=== PATIENT | male | born 2000 | race Caucasian/White ===

== ENCOUNTER → 2021-01-13 | Outpatient (CLI) | payer OTHER ==
--- NOTE | 2021-01-13 13:07 | Diagnostic Imaging Report ---
INDICATION: Left knee pain. Injury. COMPARISON: None. FINDINGS: 3 views of the left knee joint demonstrate no acute fracture or dislocation. No focal osseous lesions are seen. Small suprapatellar joint effusion is seen. The surrounding soft tissue structures are unremarkable. There are no radiopaque foreign bodies. IMPRESSION: 1. Small suprapatellar joint effusion, but no radiographic evidence of acute fracture or dislocation of the left knee. Dictated by: Dictated on workstation # [id number]
== END ==
LOC: RAD FS 11:20
PROVIDERS: ATTEND Nurse Practitioner
DX: M25.462 Effusion, left knee (principal)
CPT/HCPCS: 73562